=== PATIENT | male | born 1980 | race Caucasian/White ===

== ENCOUNTER 2023-02-16 02:40 | Emergency (ER) | payer OTHER ==
[2023-02-16 02:55] VITALS: BP 138/90; PULSE 73; RESP 18; TEMP 97.9; BMI 27.4
[2023-02-16] MEDS ORDERED: ONDANSETRON *ODT* 4 MG TABLET SL ONE (03:19)
[2023-02-16] MEDS ORDERED: ONDANSETRON *ODT* 4 MG TABLET ONE (03:47)
== END 2023-02-16 03:56 | disposition home or self-care (01) ==
LOC: JER 02:40
PROC: 2W3CX1Z Immobilization of Right Lower Arm using Splint (ICD-10-PCS; principal; 2023-02-16)
DX: S69.91XA Unspecified injury of right wrist, hand and finger(s), initial encounter (principal); V00.111A Fall from in-line roller-skates, initial encounter
CPT/HCPCS: 73110-TC-RT-FY; 73130-TC-RT-FY; 99283-25; Q0162

== ENCOUNTER 2023-04-27 08:07 | Day surgery (SDC) | payer OTHER ==
[2023-04-25 15:23] VITALS: BMI 29.5
[~2023-04-27 08:07] MED LIST: LACTATED RINGERS SOLUTION 1,000 ML IV SCH; ONDANSETRON 4 MG/2 ML VIAL IVPUSH PRN; oxyCODONE HCL 5 MG TABLET PO PRN
[2023-04-27] MEDS ORDERED: MIDAZOLAM HCL 2 MG/2 ML SINGLE DOSE VIAL ONE (09:14)
[2023-04-27] MEDS ORDERED: BUPIVACAINE HCL/PF 0.5% (5 MG/ML) 30 ML VIAL IJ ONE (09:14)
[2023-04-27] MEDS ORDERED: ACETAMINOPHEN INJECTION 100 ML IVPB ONE (09:14)
[2023-04-27] MEDS ORDERED: PROPOFOL 20 ML ONE ×3 (09:48→10:27)
[2023-04-27] MEDS ORDERED: DEXAMETHASONE SOD PHOSPHATE 4 MG/1 ML VIAL ONE (10:05)
[2023-04-27] MEDS ORDERED: ONDANSETRON 4 MG/2 ML VIAL ONE (10:05)
[2023-04-27] MEDS ORDERED: KETOROLAC TROMETHAMINE 30 MG/1 ML VIAL ONE (10:05)
[2023-04-27 13:23] VITALS: BP 129/73; PULSE 66; RESP 17; TEMP 97.5
== END 2023-04-27 13:23 | disposition home or self-care (01) ==
LOC: FASU 08:07
PROVIDERS: ATTEND Orthopaedic Surgery Hand Surgery
PROC: 0PTM0ZZ Resection of Right Carpal, Open Approach (ICD-10-PCS; principal; 2023-04-27 09:58)
DX: M19.031 Primary osteoarthritis, right wrist (principal)
CPT/HCPCS: 73110-TC-RT-FY; 94760

== ENCOUNTER 2024-01-15 16:18 | Emergency (ER) | payer OTHER ==
[2024-01-15 16:34] VITALS: BP 140/85; PULSE 98; RESP 19; TEMP 98.2; BMI 29.9
[2024-01-15] MEDS ORDERED: ACETAMINOPHEN 500 MG TABLET (FP) ONE (17:14)
[2024-01-15] MEDS: ACETAMINOPHEN 500 MG TABLET (FP) PO ONE (17:16)
== END 2024-01-15 18:24 | disposition home or self-care (01) ==
LOC: JERFT 16:18 → JER 16:18 → JERFT 18:24
DX: S63.501A Unspecified sprain of right wrist, initial encounter (principal); W01.198A Fall on same level from slipping, tripping and stumbling with subsequent striking against other object, initial encounter
CPT/HCPCS: 73110-TC-RT-FY; 99283-25